=== PATIENT | female | born 1940 | race Caucasian/White ===

== ENCOUNTER 2016-04-08 15:03 | Outpatient (CLI) | payer MEDICARE | END 2016-04-08 15:04 | disposition home or self-care (01) | DX: I81 Portal vein thrombosis (principal); D75.9 Disease of blood and blood-forming organs, unspecified ==

== ENCOUNTER 2016-05-06 14:52 | Outpatient (CLI) | payer MEDICARE | END 2016-05-06 14:53 | disposition home or self-care (01) | DX: I81 Portal vein thrombosis (principal); D75.9 Disease of blood and blood-forming organs, unspecified ==

== ENCOUNTER 2016-07-05 11:33 | Outpatient (CLI) | payer MEDICARE | END 2016-07-05 11:34 | disposition home or self-care (01) | DX: I81 Portal vein thrombosis (principal); D75.9 Disease of blood and blood-forming organs, unspecified ==

== ENCOUNTER 2016-10-11 13:23 | Outpatient (CLI) | payer MEDICARE | END 2016-10-11 13:24 | disposition home or self-care (01) | LOC: LAB.F 13:23 | PROVIDERS: ATTEND Internal Medicine | DX: I81 Portal vein thrombosis (principal) | CPT/HCPCS: 85610 ==

== ENCOUNTER → 2016-11-15 | Outpatient (CLI) | payer MEDICARE | LOC: LAB.F 08:00 | PROVIDERS: ATTEND Internal Medicine | DX: I81 Portal vein thrombosis (principal); D75.9 Disease of blood and blood-forming organs, unspecified | CPT/HCPCS: 85610 ==

== ENCOUNTER 2016-12-16 11:27 | Outpatient (CLI) | payer MEDICARE | END 2016-12-16 11:28 | disposition home or self-care (01) | LOC: LAB.F 11:27 | PROVIDERS: ATTEND Pharmacist | DX: I81 Portal vein thrombosis (principal); D75.9 Disease of blood and blood-forming organs, unspecified | CPT/HCPCS: 85610 ==

== ENCOUNTER 2017-02-02 14:40 | Outpatient (CLI) | payer MEDICARE | END 2017-02-02 14:41 | disposition home or self-care (01) | LOC: LAB.F 14:40 | PROVIDERS: ATTEND Pharmacist | DX: I81 Portal vein thrombosis (principal); D75.9 Disease of blood and blood-forming organs, unspecified | CPT/HCPCS: 85610 ==

== ENCOUNTER 2017-03-30 12:01 | Outpatient (CLI) | payer MEDICARE | END 2017-03-30 12:02 | LOC: LAB.F 12:01 | PROVIDERS: ATTEND Pharmacist | DX: I81 Portal vein thrombosis (principal); D75.9 Disease of blood and blood-forming organs, unspecified | CPT/HCPCS: 85610 ==

== ENCOUNTER 2017-11-07 12:58 | Outpatient (CLI) | payer MEDICARE | END 2017-11-07 12:59 | disposition home or self-care (01) | LOC: LAB.F 12:58 | PROVIDERS: ATTEND Pharmacist | DX: I81 Portal vein thrombosis (principal); D75.9 Disease of blood and blood-forming organs, unspecified | CPT/HCPCS: 85610 ==

== ENCOUNTER 2017-11-28 11:51 | Outpatient (CLI) | payer MEDICARE | END 2017-11-28 11:52 | disposition home or self-care (01) | LOC: LAB.F 11:51 | PROVIDERS: ATTEND Pharmacist | DX: I81 Portal vein thrombosis (principal); D75.9 Disease of blood and blood-forming organs, unspecified | CPT/HCPCS: 85610 ==

== ENCOUNTER 2017-12-05 13:43 | Outpatient (CLI) | payer MEDICARE | END 2017-12-05 13:44 | disposition home or self-care (01) | LOC: LAB.S 13:43 | PROVIDERS: ATTEND Pharmacist | DX: I81 Portal vein thrombosis (principal); D75.9 Disease of blood and blood-forming organs, unspecified | CPT/HCPCS: 85610 ==

== ENCOUNTER 2018-01-20 13:52 | Outpatient (CLI) | payer MEDICARE | END 2018-01-20 13:53 | disposition home or self-care (01) | LOC: LAB.F 13:52 | PROVIDERS: ATTEND Pharmacist | DX: I81 Portal vein thrombosis (principal); D75.9 Disease of blood and blood-forming organs, unspecified | CPT/HCPCS: 85610 ==

== ENCOUNTER 2018-02-10 14:14 | Outpatient (CLI) | payer MEDICARE | END 2018-02-10 14:15 | disposition home or self-care (01) | LOC: LAB.F 14:14 | PROVIDERS: ATTEND Pharmacist | DX: I81 Portal vein thrombosis (principal); D75.9 Disease of blood and blood-forming organs, unspecified | CPT/HCPCS: 85610 ==

== ENCOUNTER 2018-03-03 13:24 | Outpatient (CLI) | payer MEDICARE | END 2018-03-03 13:25 | disposition home or self-care (01) | LOC: LAB.F 13:24 | PROVIDERS: ATTEND Pharmacist | DX: I81 Portal vein thrombosis (principal); D75.9 Disease of blood and blood-forming organs, unspecified | CPT/HCPCS: 85610 ==

== ENCOUNTER 2018-04-07 11:30 | Outpatient (CLI) | payer MEDICARE | END 2018-04-07 23:59 | disposition home or self-care (01) | LOC: LAB.F 11:30 | PROVIDERS: ATTEND Internal Medicine | DX: I81 Portal vein thrombosis (principal); D75.9 Disease of blood and blood-forming organs, unspecified | CPT/HCPCS: 85610 ==

== ENCOUNTER 2018-06-07 14:53 | Outpatient (CLI) | payer MEDICARE | END 2018-06-07 14:54 | disposition home or self-care (01) | LOC: LAB.F 14:53 | PROVIDERS: ATTEND Pharmacist | DX: I81 Portal vein thrombosis (principal); D75.9 Disease of blood and blood-forming organs, unspecified | CPT/HCPCS: 85610 ==

== ENCOUNTER 2018-07-28 11:29 | Outpatient (CLI) | payer MEDICARE | END 2018-07-28 11:30 | disposition home or self-care (01) | LOC: LAB.F 11:29 | PROVIDERS: ATTEND Pharmacist | DX: I81 Portal vein thrombosis (principal); D75.9 Disease of blood and blood-forming organs, unspecified | CPT/HCPCS: 85610 ==

== ENCOUNTER 2018-08-10 13:38 | Outpatient (CLI) | payer MEDICARE | END 2018-08-10 13:39 | disposition home or self-care (01) | LOC: LAB.F 13:38 | PROVIDERS: ATTEND Pharmacist | DX: I81 Portal vein thrombosis (principal); D75.9 Disease of blood and blood-forming organs, unspecified | CPT/HCPCS: 85610 ==

== ENCOUNTER 2018-09-08 12:35 | Outpatient (CLI) | payer MEDICARE | END 2018-09-08 12:36 | disposition home or self-care (01) | LOC: LAB.F 12:35 | PROVIDERS: ATTEND Pharmacist | DX: I81 Portal vein thrombosis (principal); D75.9 Disease of blood and blood-forming organs, unspecified | CPT/HCPCS: 85610 ==

== ENCOUNTER 2018-10-02 14:51 | Outpatient (CLI) | payer MEDICARE | END 2018-10-02 14:52 | disposition home or self-care (01) | LOC: LAB.S 14:51 | PROVIDERS: ATTEND Pharmacist | DX: I81 Portal vein thrombosis (principal); D75.9 Disease of blood and blood-forming organs, unspecified | CPT/HCPCS: 85610 ==

== ENCOUNTER 2018-11-09 13:23 | Outpatient (CLI) | payer MEDICARE | END 2018-11-09 13:24 | disposition home or self-care (01) | LOC: LAB.S 13:23 | PROVIDERS: ATTEND Pharmacist | DX: I81 Portal vein thrombosis (principal); D75.9 Disease of blood and blood-forming organs, unspecified | CPT/HCPCS: 85610 ==

== ENCOUNTER 2018-11-22 14:11 | Outpatient (CLI) | payer MEDICARE | END 2018-11-22 14:12 | disposition home or self-care (01) | LOC: LAB.S 14:11 | PROVIDERS: ATTEND Pharmacist | DX: I81 Portal vein thrombosis (principal); D75.9 Disease of blood and blood-forming organs, unspecified | CPT/HCPCS: 85610 ==

== ENCOUNTER 2019-02-07 11:05 | Outpatient (CLI) | payer MEDICARE | END 2019-02-07 11:06 | disposition home or self-care (01) | LOC: LAB.S 11:05 | PROVIDERS: ATTEND Pharmacist | DX: I81 Portal vein thrombosis (principal); D75.9 Disease of blood and blood-forming organs, unspecified; I63.9 Cerebral infarction, unspecified | CPT/HCPCS: 85610 ==

== ENCOUNTER 2019-04-13 15:10 | Outpatient (CLI) | payer MEDICARE | END 2019-04-13 15:11 | disposition home or self-care (01) | LOC: LAB.S 15:10 | PROVIDERS: ATTEND Pharmacist | DX: I81 Portal vein thrombosis (principal); D75.9 Disease of blood and blood-forming organs, unspecified | CPT/HCPCS: 85610 ==

== ENCOUNTER 2019-05-01 14:16 | Outpatient (CLI) | payer MEDICARE | END 2019-05-01 14:17 | disposition home or self-care (01) | LOC: LAB.S 14:16 | PROVIDERS: ATTEND Pharmacist | DX: I81 Portal vein thrombosis (principal); D75.9 Disease of blood and blood-forming organs, unspecified | CPT/HCPCS: 85610 ==

== ENCOUNTER 2019-05-29 10:57 | Outpatient (CLI) | payer MEDICARE | END 2019-05-29 10:58 | disposition home or self-care (01) | LOC: LAB.S 10:57 | PROVIDERS: ATTEND Pharmacist | DX: I81 Portal vein thrombosis (principal); D75.9 Disease of blood and blood-forming organs, unspecified | CPT/HCPCS: 85610 ==

== ENCOUNTER 2019-07-02 14:28 | Outpatient (CLI) | payer MEDICARE ==
[2019-07-02 17:33] LABS: INR 2.3 (0.8-1.2); PT - PROTHROMBIN TIME 24.5 secs (9.9-12.6)
== END 2019-07-02 23:59 | disposition home or self-care (01) ==
LOC: LAB.WCP 14:28
PROVIDERS: ATTEND Pharmacist
DX: I81 Portal vein thrombosis (principal); D75.9 Disease of blood and blood-forming organs, unspecified
CPT/HCPCS: 36415; 85610

== ENCOUNTER 2019-08-04 16:24 | Outpatient (CLI) | payer MEDICARE | END 2019-08-04 16:25 | disposition critical access hospital (66) | LOC: EMS 16:24 | PROVIDERS: ATTEND Surgery | DX: R03.0 Elevated blood-pressure reading, without diagnosis of hypertension (principal); R51 Headache | CPT/HCPCS: A0425; A0429 ==

== ENCOUNTER 2019-08-04 17:06 | Emergency (ER) | payer MEDICARE ==
--- NOTE | 2019-08-04 17:25 | ED Physician Documentation ---
History of Present Illness - Stated complaint Stated Complaint: GLF - Chief complaint Chief Complaint: Trauma Hd/Nk - History obtained from History obtained from: Patient - History of Present Illness Timing: Today Pain level max: 1 Pain level now: 1 - Additonal information Additional information: 79-year-old female presents to the emergency department stating that she takes warfarin at home for history of blood clots. She states that today she was hanging up decorations and walking backwards when she tripped fell and struck her head on the ground. No loss of consciousness. Mild right-sided neck pain. No hip pain. No low back pain. She states that she checked her blood pressure and found it to be high. Called 911 for the blood pressure. She did not take her atenolol today. Does not know her normal pulse rate. Denies any loss of consciousness. She also rolled out of bed onto the floor 2 days ago. Unknown if she hit her head at that point either. Review of Systems Ten Systems: 10 systems reviewed and negative Constitutional: denies: Fever, Chills Ears: denies: Ear pain Nose: denies: Rhinorrhea / runny nose, Congestion Throat: denies: Sore throat Cardiac: denies: Chest pain / pressure, Palpitations Respiratory: denies: Dyspnea, Cough, Wheezing GI: denies: Abdominal Pain, Nausea, Vomiting, Diarrhea : denies: Unable to Void, Incontinent Skin: denies: Rash Musculoskeletal: denies: Back pain Neurologic: denies: Focal weakness, Numbness, Confused, Altered mental status, LOC PD PAST MEDICAL HISTORY - Past Medical History Past Medical History: Yes Cardiovascular: Hypertension, High cholesterol Respiratory: None Neuro: None Endocrine/Autoimmune: None NODULIZER: None : None HEENT: None Psych: None Musculoskeletal: None Derm: None - Past Surgical History Past Surgical History: Yes General: Gastric surgery - Present Medications Home Medications: Ambulatory Orders Medication Instructions Recorded Confirmed Esomeprazole Magnesium [Nexium] 40 mg PO DAILY #30 capsule. 06/03/15 Rosuvastatin Calcium [Crestor] 1 mg PO DAILY 06/03/15 06/03/15 Warfarin [Coumadin] 1 mg PO DAILY 06/03/15 06/03/15 atenoloL [Atenolol] 1 mg PO DAILY 06/03/15 06/03/15 - Allergies Allergies/Adverse Reactions: Allergies Allergy/AdvReac Type Severity Reaction Status Date / Time No Known Drug Allergies Allergy Verified 06/03/15 01:48 - Social History Does the pt smoke?: No Smoking Status: Never smoker Does the pt drink ETOH?: Yes Does the pt have substance abuse?: No - Immunizations Immunizations are current?: Yes Immunizations: TDAP current <10years - POLST Patient has POLST: No PD ED PE NORMAL - Vitals Vital signs reviewed: Yes - General General: Alert and oriented X 3, No acute distress, Well developed/nourished - HEENT HEENT: Atraumatic, PERRL, Ears normal, Moist mucous membranes, Pharynx benign - Neck Neck: Supple, no meningeal sign, Other (Mild right-sided tenderness to palpation.) - Cardiac Cardiac: RRR, Strong equal pulses - Respiratory Respiratory: No respiratory distress, Clear bilaterally - Abdomen Abdomen: Soft, Non tender, Non distended - Derm Derm: Warm and dry - Extremities Extremities: No edema, No calf tenderness / cord - Neuro Neuro: Alert and oriented X 3 - Psych Psych: Normal mood, Normal affect Results - Vitals Vitals: Vital Signs - 24 hr 08/04/19 08/04/19 08/04/19 17:04 17:14 17:44 Temperature 36.7 C Heart Rate 58 L 64 60 Respiratory 18 20 16 Rate Blood Pressure 219/101 H 137/82 H 181/88 H O2 Saturation 99 96 98 08/04/19 08/04/19 18:14 18:40 Temperature 36.8 C Heart Rate 60 64 Respiratory 20 18 Rate Blood Pressure 140/78 H 156/86 H O2 Saturation 96 98 Oxygen O2 Source Room air - EKG (time done) 1741 Rate: Rate (enter#) (54) Rhythm: NSR, Other (PAC) Warren: Normal Intervals: Normal ND QRS: Normal, LVH Ischemia: Normal ST segments - Labs Labs: Laboratory Tests 08/04/19 08/04/19 08/04/19 17:40 17:40 17:40 WBC 5.4 RBC 4.69 Hgb 12.7 Hct 40.8 MCV 87.0 MCH 27.1 MCHC 31.1 L RDW 15.8 H Plt Count 227 MPV 9.9 Neut # (Auto) 3.2 Lymph # (Auto) 1.4 L [place] # (Auto) 0.6 Eos # (Auto) 0.1 Baso # (Auto) 0.0 Absolute Nucleated RBC 0.00 Nucleated RBC % 0.0 PT 22.3 H INR 2.0 H Sodium 141 Potassium 4.0 Chloride 106 Carbon Dioxide 24 Anion Gap 11.0 BUN 23 H Creatinine 1.0 Estimated GFR (MDRD) 54 L Glucose 108 H Calcium 9.0 Total Bilirubin 1.2 H AST 20 ALT 13 Alkaline Phosphatase 63 Troponin I High Sens Total Protein 7.2 Albumin 4.1 Globulin 3.1 Albumin/Globulin Ratio 1.3 Lipase 37 08/04/19 17:40 WBC RBC Hgb Hct MCV MCH MCHC RDW Plt Count MPV Neut # (Auto) Lymph # (Auto) [place] # (Auto) Eos # (Auto) Baso # (Auto) Absolute Nucleated RBC Nucleated RBC % PT INR Sodium Potassium Chloride Carbon Dioxide Anion Gap BUN Creatinine Estimated GFR (MDRD) Glucose Calcium Total Bilirubin AST ALT Alkaline Phosphatase Troponin I High Sens 6.4 Total Protein Albumin Globulin Albumin/Globulin Ratio Lipase - Rads (name of study) Head CT Radiology: Prelim report reviewed, EMP read contemporaneously, See rad report (No acute intracranial abnormality. ) Cervical spine CT Radiology: Prelim report reviewed, EMP read contemporaneously, See rad report (No acute fracture.) cxr Radiology: Prelim report reviewed, EMP read contemporaneously, See rad report (Upper tracheal shift to the left suggesting right thyroid mass, otherwise unremarkable single view chest radiography. ) PD MEDICAL DECISION MAKING - ED course Complexity details: reviewed results, re-evaluated patient, considered differential, d/w patient ED course: Patient with a fall and a head injury. No acute findings on cervical spine CT, head CT or chest x-ray. No syncope. No evidence of acute coronary syndrome. Has a known thyroid issue. No acute injuries. Blood pressure decreased on its own in the emergency department. Recommend that she take her atenolol at home. She has not been taking this for the past 4 days. Patient counseled regarding signs and symptoms for which I believe and urgent re-evaluation would be necessary. Patient with good understanding of and agreement to plan and is comfortable going home at this time This document was made in part using voice recognition software. While efforts are made to proofread this document, sound alike and grammatical errors may occur. Departure - Departure Disposition: Home, Self Care Clinical Impression: Enlarged thyroid gland Fall Qualifiers: Encounter type: initial encounter Qualified Code(s): W19.XXXA - Unspecified fall, initial encounter Head injury Qualifiers: Encounter type: initial encounter Qualified Code(s): S09.90XA - Unspecified injury of head, initial encounter Hypertension Qualifiers: Hypertension type: unspecified Qualified Code(s): I10 - Essential (primary) hypertension Condition: Good Instructions: ED Head Injury Closed Follow-Up: Jose Estrada [Primary Care Provider] - Within 1 week Comments: There did not appear to be any acute injuries from your fall. Your thyroid is enlarged and should be further evaluated by your doctor. Return if you worsen. Continue your medications at home. Discharge Date/Time: 08/04/19 18:49
[2019-08-04 17:49] LABS: BASOPHILS % (AUTO) 0.6 %; EOSINOPHILS # (AUTO) 0.1 10^3/uL (0.0-0.7); HGB - HEMOGLOBIN 12.7 g/dL (12.0-16.0); LYMPHOCYTES # (AUTO) 1.4 10^3/uL (1.5-3.5); LYMPHOCYTES % (AUTO) 26.6 %; MEAN CORPUSCULAR HEMOGLOBIN 27.1 pg (27.0-31.0); MEAN CORPUSCULAR HGB CONC 31.1 g/dL (32.0-36.0); MEAN PLATELET VOLUME 9.9 fL (7.9-10.8); MONOCYTES # (AUTO) 0.6 10^3/uL (0.0-1.0); MONOCYTES % (AUTO) 10.6 %; NEUTROPHILS # (AUTO) 3.2 10^3/uL (1.5-6.6); PLT - PLATELET COUNT 227 10^3/uL (130-450); RED BLOOD COUNT 4.69 10^6/uL (4.20-5.40); RED CELL DISTRIBUTION WIDTH 15.8 % (12.0-15.0); WHITE BLOOD COUNT 5.4 x10^3/uL (4.8-10.8)
[2019-08-04 17:59] LABS: PT - PROTHROMBIN TIME 22.3 secs (9.9-12.6)
[2019-08-04 18:00] LABS: ALBUMIN 4.1 g/dL (3.2-5.5); ALBUMIN/GLOBULIN RATIO 1.3 (1.0-2.2); BILIRUBIN,TOTAL 1.2 mg/dL (0.2-1.0); TOTAL PROTEIN 7.2 g/dL (6.7-8.2)
--- NOTE | 2019-08-04 18:04 | CT Report ---
Reason: fall, head injury, takes warfarin Procedure Date: 08/04/2019 Accession Number: [id number] / [id number] Procedure: CT - HEAD WO CPT Code: Final Report FULL RESULT: EXAM: CT HEAD EXAM DATE: 08/04/2019 05:32 PM. CLINICAL HISTORY: Fall, head injury, takes warfarin. COMPARISON: None. TECHNIQUE: Multiaxial CT images were obtained from the foramen magnum to the vertex. Reformats: Sagittal and coronal. IV contrast: None. In accordance with CT protocol optimization, one or more of the following dose reduction techniques were utilized for this exam: automated exposure control, adjustment of mA and/or KV based on patient size, or use of iterative reconstructive technique. FINDINGS: Parenchyma: No intraparenchymal hemorrhage. No evidence of mass, midline shift, or CT findings of infarction. Paulino-white differentiation is distinct. Extraaxial Spaces: Mild volume loss. No subdural or epidural hemorrhage. Ventricles: Normal in size and position. Sinuses and Orbits: Imaged paranasal sinuses, orbits, and mastoids show no significant abnormality. Bones: No evidence of fracture or calvarial defect. Other: None. IMPRESSION: No acute intracranial abnormality. [facility]
--- NOTE | 2019-08-04 18:08 | XRAY Report ---
Reason: Chest Pain Procedure Date: 08/04/2019 Accession Number: [id number] / [id number] Procedure: XR - Chest 1 View X-Ray CPT Code: 90141 Final Report FULL RESULT: EXAM: CHEST RADIOGRAPHY EXAM DATE: 08/04/2019 05:38 PM. CLINICAL HISTORY: All. Chest pain. COMPARISON: None. TECHNIQUE: 1 view. FINDINGS: Lungs/Pleura: No focal opacities evident. No pleural effusion. No pneumothorax. Mediastinum: Normal heart size for technique. Leftward shift of the upper trachea. Other: No fracture identified. IMPRESSION: Upper tracheal shift to the left suggesting right thyroid mass, otherwise unremarkable single view chest radiography. [facility]
--- NOTE | 2019-08-04 18:09 | CT Report ---
Reason: fall, neck injury, takes warfarin Procedure Date: 08/04/2019 Accession Number: [id number] / [id number] Procedure: CT - CERVICAL SPINE WO CPT Code: Final Report FULL RESULT: EXAM: CT CERVICAL SPINE WITHOUT CONTRAST DATE: 08/04/2019 05:32 PM. HISTORY: Fall, neck injury, takes warfarin. COMPARISONS: HEAD WO 08/04/2019 5:21 PM. TECHNIQUE: Thin-section axial images were acquired of the cervical spine without contrast. Post-processing: Coronal and sagittal reformats. Other: None. In accordance with CT protocol optimization, one or more of the following dose reduction techniques were utilized for this exam: automated exposure control, adjustment of mA and/or KV based on patient size, or use of iterative reconstructive technique. FINDINGS: Alignment: 3 mm degenerative anterolisthesis of C4 on C5. Minimal anterolisthesis C7 on T1. Bones: No acute fracture identified. There is incomplete fusion of the posterior arch of C1. The bones may be demineralized. Interspace Levels/Facets: Multilevel disk degeneration and facet arthrosis greatest at C5-C6 and C6-C7. Mild to moderate spinal canal and bilateral foraminal stenosis at C6-C7. Other: Enlarged and nodular right thyroid lobe likely reflects goiter. Absent left thyroid lobe. The lung apices are clear. IMPRESSION: No acute fracture. [facility]
[2019-08-04 18:44] VITALS: BP 156/86
== END 2019-08-04 18:49 | disposition home or self-care (01) ==
LOC: ED 17:06
DX: I10 Essential (primary) hypertension (principal); T44.7X6A Underdosing of beta-adrenoreceptor antagonists, initial encounter; S09.90XA Unspecified injury of head, initial encounter; W01.0XXA Fall on same level from slipping, tripping and stumbling without subsequent striking against object, initial encounter; Y93.89 Activity, other specified; E04.9 Nontoxic goiter, unspecified; I49.1 Atrial premature depolarization; Z79.01 Long term (current) use of anticoagulants; Z86.718 Personal history of other venous thrombosis and embolism; M50.322 Other cervical disc degeneration at C5-C6 level; M48.02 Spinal stenosis, cervical region
CPT/HCPCS: 36415; 70450; 71045; 72125; 80053; 83690; 84484; 85025; 85610; 93005; 99284; 99285

== ENCOUNTER 2019-10-12 14:16 | Outpatient (CLI) | payer MEDICARE | END 2019-10-12 14:17 | disposition home or self-care (01) | LOC: LAB.S 14:16 | PROVIDERS: ATTEND Pharmacist | DX: I81 Portal vein thrombosis (principal); D75.9 Disease of blood and blood-forming organs, unspecified | CPT/HCPCS: 85610 ==

== ENCOUNTER 2019-12-03 11:21 | Outpatient (CLI) | payer MEDICARE | END 2019-12-03 11:22 | disposition home or self-care (01) | LOC: LAB.S 11:21 | PROVIDERS: ATTEND Pharmacist | DX: I81 Portal vein thrombosis (principal); D75.9 Disease of blood and blood-forming organs, unspecified | CPT/HCPCS: 85610 ==

== ENCOUNTER 2020-01-14 12:47 | Outpatient (CLI) | payer MEDICARE | END 2020-01-14 12:48 | disposition home or self-care (01) | LOC: LAB.S 12:47 | PROVIDERS: ATTEND Pharmacist | DX: I81 Portal vein thrombosis (principal); D75.9 Disease of blood and blood-forming organs, unspecified | CPT/HCPCS: 85610 ==

== ENCOUNTER 2020-02-04 10:58 | Outpatient (CLI) | payer MEDICARE | END 2020-02-04 10:59 | disposition home or self-care (01) | LOC: LAB.S 10:58 | PROVIDERS: ATTEND Pharmacist | DX: I81 Portal vein thrombosis (principal); D75.9 Disease of blood and blood-forming organs, unspecified | CPT/HCPCS: 85610 ==

== ENCOUNTER 2020-02-19 14:48 | Outpatient (CLI) | payer MEDICARE | END 2020-02-19 14:49 | disposition home or self-care (01) | LOC: LAB.S 14:48 | PROVIDERS: ATTEND Pharmacist | DX: I81 Portal vein thrombosis (principal); D75.9 Disease of blood and blood-forming organs, unspecified | CPT/HCPCS: 85610 ==

== ENCOUNTER 2020-03-25 12:48 | Outpatient (CLI) | payer MEDICARE | END 2020-03-25 12:49 | disposition home or self-care (01) | LOC: LAB.S 12:48 | PROVIDERS: ATTEND Pharmacist | DX: I81 Portal vein thrombosis (principal); D75.9 Disease of blood and blood-forming organs, unspecified | CPT/HCPCS: 85610 ==

== ENCOUNTER 2020-04-29 13:14 | Outpatient (CLI) | payer MEDICARE | END 2020-04-29 13:15 | disposition home or self-care (01) | LOC: LAB.S 13:14 | PROVIDERS: ATTEND Pharmacist | DX: I81 Portal vein thrombosis (principal); D75.9 Disease of blood and blood-forming organs, unspecified | CPT/HCPCS: 85610 ==

== ENCOUNTER 2020-06-05 14:25 | Outpatient (CLI) | payer MEDICARE | END 2020-06-05 14:26 | disposition home or self-care (01) | LOC: LAB.S 14:25 | PROVIDERS: ATTEND Pharmacist | DX: I81 Portal vein thrombosis (principal); D75.9 Disease of blood and blood-forming organs, unspecified; Z79.01 Long term (current) use of anticoagulants | CPT/HCPCS: 85610 ==

== ENCOUNTER 2020-07-07 14:23 | Outpatient (CLI) | payer MEDICARE | END 2020-07-07 14:24 | disposition home or self-care (01) | LOC: LAB.S 14:23 | PROVIDERS: ATTEND Pharmacist | DX: I81 Portal vein thrombosis (principal); D75.9 Disease of blood and blood-forming organs, unspecified; Z79.01 Long term (current) use of anticoagulants | CPT/HCPCS: 85610 ==

== ENCOUNTER 2020-07-21 13:58 | Outpatient (CLI) | payer MEDICARE | END 2020-07-21 13:59 | disposition home or self-care (01) | LOC: LAB.S 13:58 | PROVIDERS: ATTEND Pharmacist | DX: I81 Portal vein thrombosis (principal); D75.9 Disease of blood and blood-forming organs, unspecified; Z79.01 Long term (current) use of anticoagulants | CPT/HCPCS: 36416; 85610 ==

== ENCOUNTER 2020-08-22 14:49 | Outpatient (CLI) | payer MEDICARE | END 2020-08-22 14:50 | disposition home or self-care (01) | LOC: LAB.S 14:49 | PROVIDERS: ATTEND Pharmacist | DX: I81 Portal vein thrombosis (principal); D75.9 Disease of blood and blood-forming organs, unspecified; Z79.01 Long term (current) use of anticoagulants | CPT/HCPCS: 36416; 85610 ==

== ENCOUNTER 2020-10-20 14:45 | Outpatient (CLI) | payer MEDICARE | END 2020-10-20 14:46 | disposition home or self-care (01) | LOC: LAB.S 14:45 | PROVIDERS: ATTEND Pharmacist | DX: I81 Portal vein thrombosis (principal); D75.9 Disease of blood and blood-forming organs, unspecified; Z79.01 Long term (current) use of anticoagulants | CPT/HCPCS: 36416; 85610 ==

== ENCOUNTER 2020-11-17 15:21 | Outpatient (CLI) | payer MEDICARE | END 2020-11-17 15:22 | disposition home or self-care (01) | LOC: LAB.S 15:21 | PROVIDERS: ATTEND Pharmacist | DX: I81 Portal vein thrombosis (principal); D75.9 Disease of blood and blood-forming organs, unspecified; Z79.01 Long term (current) use of anticoagulants | CPT/HCPCS: 36416; 85610 ==

== ENCOUNTER 2020-12-29 14:21 | Outpatient (CLI) | payer MEDICARE | END 2020-12-29 14:22 | disposition home or self-care (01) | LOC: LAB.S 14:21 | PROVIDERS: ATTEND Pharmacist | DX: I81 Portal vein thrombosis (principal); D75.9 Disease of blood and blood-forming organs, unspecified; Z79.01 Long term (current) use of anticoagulants | CPT/HCPCS: 36416; 85610 ==

== ENCOUNTER 2021-02-06 15:44 | Outpatient (CLI) | payer MEDICARE | END 2021-02-06 15:45 | disposition home or self-care (01) | LOC: LAB.S 15:44 | PROVIDERS: ATTEND Pharmacist | DX: I81 Portal vein thrombosis (principal); D75.9 Disease of blood and blood-forming organs, unspecified; Z79.01 Long term (current) use of anticoagulants | CPT/HCPCS: 36416; 85610 ==

== ENCOUNTER 2021-02-27 16:07 | Outpatient (CLI) | payer MEDICARE | END 2021-02-27 16:08 | disposition home or self-care (01) | LOC: LAB.S 16:07 | PROVIDERS: ATTEND Pharmacist | DX: I81 Portal vein thrombosis (principal); D75.9 Disease of blood and blood-forming organs, unspecified; Z79.01 Long term (current) use of anticoagulants | CPT/HCPCS: 36416; 85610 ==

== ENCOUNTER 2021-04-08 15:56 | Outpatient (CLI) | payer MEDICARE | END 2021-04-08 15:57 | disposition home or self-care (01) | LOC: LAB.S 15:56 | PROVIDERS: ATTEND Pharmacist | DX: I81 Portal vein thrombosis (principal); D75.9 Disease of blood and blood-forming organs, unspecified; Z79.01 Long term (current) use of anticoagulants | CPT/HCPCS: 36416; 85610 ==

== ENCOUNTER 2021-06-24 14:36 | Outpatient (CLI) | payer MEDICARE | END 2021-06-24 14:37 | disposition home or self-care (01) | LOC: LAB.S 14:36 | PROVIDERS: ATTEND Pharmacist | DX: I81 Portal vein thrombosis (principal); D75.9 Disease of blood and blood-forming organs, unspecified; Z79.01 Long term (current) use of anticoagulants | CPT/HCPCS: 36416; 85610 ==

== ENCOUNTER 2021-08-18 10:07 | Outpatient (CLI) | payer MEDICARE | END 2021-08-18 10:08 | disposition home or self-care (01) | LOC: LAB.S 10:07 | PROVIDERS: ATTEND Pharmacist | DX: I81 Portal vein thrombosis (principal); D75.9 Disease of blood and blood-forming organs, unspecified; Z79.01 Long term (current) use of anticoagulants | CPT/HCPCS: 36416; 85610 ==

== ENCOUNTER 2021-12-23 13:41 | Outpatient (CLI) | payer MEDICARE | END 2021-12-23 13:42 | disposition home or self-care (01) | LOC: LAB.S 13:41 | PROVIDERS: ATTEND Pharmacist | DX: I81 Portal vein thrombosis (principal); D75.9 Disease of blood and blood-forming organs, unspecified; Z79.01 Long term (current) use of anticoagulants | CPT/HCPCS: 36416; 85610 ==

== ENCOUNTER 2022-02-10 11:42 | Outpatient (CLI) | payer MEDICARE | END 2022-02-10 11:43 | disposition home or self-care (01) | LOC: LAB.S 11:42 | PROVIDERS: ATTEND Pharmacist | DX: I81 Portal vein thrombosis (principal); Z79.01 Long term (current) use of anticoagulants; D75.9 Disease of blood and blood-forming organs, unspecified | CPT/HCPCS: 36416; 85610 ==

== ENCOUNTER 2022-02-24 14:48 | Outpatient (CLI) | payer MEDICARE | END 2022-02-24 14:49 | disposition home or self-care (01) | LOC: LAB.S 14:48 | PROVIDERS: ATTEND Pharmacist | DX: I81 Portal vein thrombosis (principal); D75.9 Disease of blood and blood-forming organs, unspecified; Z79.01 Long term (current) use of anticoagulants | CPT/HCPCS: 36416; 85610 ==

== ENCOUNTER 2022-03-22 11:04 | Outpatient (CLI) | payer MEDICARE | END 2022-03-22 11:05 | disposition home or self-care (01) | LOC: LAB.S 11:04 | PROVIDERS: ATTEND Pharmacist | DX: I81 Portal vein thrombosis (principal); D75.9 Disease of blood and blood-forming organs, unspecified; Z79.01 Long term (current) use of anticoagulants | CPT/HCPCS: 36416; 85610 ==

== ENCOUNTER 2022-04-12 11:04 | Outpatient (CLI) | payer MEDICARE | END 2022-04-12 11:05 | disposition home or self-care (01) | LOC: LAB.S 11:04 | PROVIDERS: ATTEND Pharmacist | DX: I81 Portal vein thrombosis (principal); D75.9 Disease of blood and blood-forming organs, unspecified; Z79.01 Long term (current) use of anticoagulants | CPT/HCPCS: 36416; 85610 ==

== ENCOUNTER 2022-06-07 14:02 | Outpatient (CLI) | payer MEDICARE | END 2022-06-07 14:03 | disposition home or self-care (01) | LOC: LAB.S 14:02 | PROVIDERS: ATTEND Pharmacist | DX: I81 Portal vein thrombosis (principal); D75.9 Disease of blood and blood-forming organs, unspecified; Z79.01 Long term (current) use of anticoagulants | CPT/HCPCS: 36416; 85610 ==

== ENCOUNTER 2022-08-02 12:34 | Outpatient (CLI) | payer MEDICARE | END 2022-08-02 12:35 | disposition home or self-care (01) | LOC: LAB.S 12:34 | PROVIDERS: ATTEND Pharmacist | DX: I81 Portal vein thrombosis (principal); D75.9 Disease of blood and blood-forming organs, unspecified; Z79.01 Long term (current) use of anticoagulants | CPT/HCPCS: 36416; 85610 ==

== ENCOUNTER 2022-08-12 12:52 | Outpatient (CLI) | payer MEDICARE | END 2022-08-12 12:53 | disposition home or self-care (01) | LOC: LAB.S 12:52 | PROVIDERS: ATTEND Pharmacist | DX: I81 Portal vein thrombosis (principal); D75.9 Disease of blood and blood-forming organs, unspecified; Z79.01 Long term (current) use of anticoagulants | CPT/HCPCS: 36416; 85610 ==

== ENCOUNTER 2022-08-26 14:27 | Outpatient (CLI) | payer MEDICARE | END 2022-08-26 14:28 | disposition home or self-care (01) | LOC: LAB.S 14:27 | PROVIDERS: ATTEND Pharmacist | DX: I81 Portal vein thrombosis (principal); D75.9 Disease of blood and blood-forming organs, unspecified; Z79.01 Long term (current) use of anticoagulants | CPT/HCPCS: 36416; 85610 ==

== ENCOUNTER 2022-09-24 14:49 | Outpatient (CLI) | payer MEDICARE | END 2022-09-24 14:50 | disposition home or self-care (01) | LOC: LAB.S 14:49 | PROVIDERS: ATTEND Pharmacist | DX: I81 Portal vein thrombosis (principal); D75.9 Disease of blood and blood-forming organs, unspecified; Z79.01 Long term (current) use of anticoagulants | CPT/HCPCS: 36416; 85610 ==

== ENCOUNTER 2022-10-15 13:59 | Outpatient (CLI) | payer MEDICARE ==
[2022-10-15 20:37] LABS: ESTIMATED AVERAGE GLUCOSE 174 mg/dL (70-100); HEMOGLOBIN A1c% 7.7 % (4.27-6.07)
== END 2022-10-15 14:00 | disposition home or self-care (01) ==
LOC: LAB.S 13:59
PROVIDERS: ATTEND Internal Medicine
DX: E11.9 Type 2 diabetes mellitus without complications (principal)
CPT/HCPCS: 36415; 83036

== ENCOUNTER 2022-11-02 14:20 | Outpatient (CLI) | payer MEDICARE | END 2022-11-02 14:21 | disposition home or self-care (01) | LOC: LAB.S 14:20 | PROVIDERS: ATTEND Pharmacist | DX: I81 Portal vein thrombosis (principal); D75.9 Disease of blood and blood-forming organs, unspecified; Z79.01 Long term (current) use of anticoagulants | CPT/HCPCS: 36416; 85610 ==

== ENCOUNTER 2022-11-24 12:44 | Outpatient (CLI) | payer MEDICARE | END 2022-11-24 12:45 | disposition home or self-care (01) | LOC: LAB.S 12:44 | PROVIDERS: ATTEND Pharmacist | DX: I81 Portal vein thrombosis (principal); Z79.01 Long term (current) use of anticoagulants; D75.9 Disease of blood and blood-forming organs, unspecified | CPT/HCPCS: 36416; 85610 ==

== ENCOUNTER 2022-12-02 13:14 | Outpatient (CLI) | payer MEDICARE | END 2022-12-02 13:15 | disposition home or self-care (01) | LOC: LAB.S 13:14 | PROVIDERS: ATTEND Pharmacist | DX: I81 Portal vein thrombosis (principal); D75.9 Disease of blood and blood-forming organs, unspecified; Z79.01 Long term (current) use of anticoagulants | CPT/HCPCS: 36416; 85610 ==

== ENCOUNTER 2023-01-12 13:48 | Outpatient (CLI) | payer MEDICARE | END 2023-01-12 13:49 | disposition home or self-care (01) | LOC: LAB.S 13:48 | PROVIDERS: ATTEND Pharmacist | DX: I81 Portal vein thrombosis (principal); D75.9 Disease of blood and blood-forming organs, unspecified; Z79.01 Long term (current) use of anticoagulants | CPT/HCPCS: 36416; 85610 ==

== ENCOUNTER 2023-02-02 12:41 | Outpatient (CLI) | payer MEDICARE | END 2023-02-02 12:42 | disposition home or self-care (01) | LOC: LAB.S 12:41 | PROVIDERS: ATTEND Pharmacist | DX: I81 Portal vein thrombosis (principal); D75.9 Disease of blood and blood-forming organs, unspecified; Z79.01 Long term (current) use of anticoagulants | CPT/HCPCS: 36416; 85610 ==

== ENCOUNTER 2023-03-08 10:22 | Outpatient (CLI) | payer MEDICARE | END 2023-03-08 10:23 | disposition home or self-care (01) | LOC: LAB.S 10:22 | PROVIDERS: ATTEND Pharmacist | DX: I81 Portal vein thrombosis (principal); D75.9 Disease of blood and blood-forming organs, unspecified; Z79.01 Long term (current) use of anticoagulants | CPT/HCPCS: 36416; 85610 ==

== ENCOUNTER 2023-03-16 12:11 | Outpatient (CLI) | payer MEDICARE | END 2023-03-16 12:12 | disposition home or self-care (01) | LOC: LAB.S 12:11 | PROVIDERS: ATTEND Pharmacist | DX: I81 Portal vein thrombosis (principal); D75.9 Disease of blood and blood-forming organs, unspecified; Z79.01 Long term (current) use of anticoagulants | CPT/HCPCS: 36416; 85610 ==

== ENCOUNTER 2023-04-11 10:27 | Outpatient (CLI) | payer MEDICARE | END 2023-04-11 10:28 | disposition home or self-care (01) | LOC: LAB.S 10:27 | PROVIDERS: ATTEND Pharmacist | DX: I81 Portal vein thrombosis (principal); D75.9 Disease of blood and blood-forming organs, unspecified; Z79.01 Long term (current) use of anticoagulants | CPT/HCPCS: 36416; 85610 ==

== ENCOUNTER 2023-05-05 10:57 | Outpatient (CLI) | payer MEDICARE | END 2023-05-05 10:58 | disposition home or self-care (01) | LOC: LAB.S 10:57 | PROVIDERS: ATTEND Pharmacist | DX: I81 Portal vein thrombosis (principal); D75.9 Disease of blood and blood-forming organs, unspecified; Z79.01 Long term (current) use of anticoagulants | CPT/HCPCS: 36416; 85610 ==

== ENCOUNTER 2023-05-19 13:09 | Outpatient (CLI) | payer MEDICARE | END 2023-05-19 13:10 | disposition home or self-care (01) | LOC: LAB.S 13:09 | PROVIDERS: ATTEND Pharmacist | DX: I81 Portal vein thrombosis (principal); D75.9 Disease of blood and blood-forming organs, unspecified; Z79.01 Long term (current) use of anticoagulants | CPT/HCPCS: 36416; 85610 ==

== ENCOUNTER 2023-06-09 13:46 | Outpatient (CLI) | payer MEDICARE | END 2023-06-09 13:47 | disposition home or self-care (01) | LOC: LAB.S 13:46 | PROVIDERS: ATTEND Pharmacist | DX: I81 Portal vein thrombosis (principal); D75.9 Disease of blood and blood-forming organs, unspecified; Z79.01 Long term (current) use of anticoagulants | CPT/HCPCS: 36416; 85610 ==

== ENCOUNTER 2023-07-11 10:16 | Outpatient (CLI) | payer MEDICARE | END 2023-07-11 10:17 | disposition home or self-care (01) | LOC: LAB.S 10:16 | PROVIDERS: ATTEND Pharmacist | DX: I81 Portal vein thrombosis (principal); D75.9 Disease of blood and blood-forming organs, unspecified; Z79.01 Long term (current) use of anticoagulants | CPT/HCPCS: 36416; 85610 ==

== ENCOUNTER 2023-07-29 14:13 | Outpatient (CLI) | payer MEDICARE | END 2023-07-29 14:14 | disposition home or self-care (01) | LOC: LAB.S 14:13 | PROVIDERS: ATTEND Pharmacist | DX: I81 Portal vein thrombosis (principal); D75.9 Disease of blood and blood-forming organs, unspecified; Z79.01 Long term (current) use of anticoagulants | CPT/HCPCS: 36416; 85610 ==

== ENCOUNTER 2023-08-11 14:45 | Outpatient (CLI) | payer MEDICARE | END 2023-08-11 14:46 | disposition home or self-care (01) | LOC: LAB.S 14:45 | PROVIDERS: ATTEND Pharmacist | DX: I81 Portal vein thrombosis (principal); D75.9 Disease of blood and blood-forming organs, unspecified; Z79.01 Long term (current) use of anticoagulants | CPT/HCPCS: 36416; 85610 ==

== ENCOUNTER 2023-09-02 14:16 | Outpatient (CLI) | payer MEDICARE | END 2023-09-02 14:17 | disposition home or self-care (01) | LOC: LAB.S 14:16 | PROVIDERS: ATTEND Pharmacist | DX: I81 Portal vein thrombosis (principal); D75.9 Disease of blood and blood-forming organs, unspecified; Z79.01 Long term (current) use of anticoagulants | CPT/HCPCS: 36416; 85610 ==

== ENCOUNTER 2023-09-30 10:05 | Outpatient (CLI) | payer MEDICARE | END 2023-09-30 10:06 | disposition home or self-care (01) | LOC: LAB.S 10:05 | PROVIDERS: ATTEND Pharmacist | DX: I81 Portal vein thrombosis (principal); D75.9 Disease of blood and blood-forming organs, unspecified; Z79.01 Long term (current) use of anticoagulants | CPT/HCPCS: 36416; 85610 ==

== ENCOUNTER 2023-11-23 10:42 | Outpatient (CLI) | payer MEDICARE | END 2023-11-23 10:43 | disposition home or self-care (01) | LOC: LAB.S 10:42 | PROVIDERS: ATTEND Pharmacist | DX: I81 Portal vein thrombosis (principal); D75.9 Disease of blood and blood-forming organs, unspecified; Z79.01 Long term (current) use of anticoagulants | CPT/HCPCS: 36416; 85610 ==